=== PATIENT | female | born 1960 | race Caucasian/White ===

== ENCOUNTER → 2023-06-16 | Outpatient (CLI) | payer OTHER, MEDICAID | LOC: LAB 09:57 | PROVIDERS: Family Medicine | DX: I10 Essential (primary) hypertension (principal); E78.2 Mixed hyperlipidemia; E03.4 Atrophy of thyroid (acquired) ==

== ENCOUNTER → 2023-09-15 | Outpatient (CLI) | payer OTHER, MEDICAID | LOC: MAMMO 13:38 → LAB 13:38 | DX: Z12.31 Encounter for screening mammogram for malignant neoplasm of breast (principal); E11.9 Type 2 diabetes mellitus without complications ==

== ENCOUNTER 2023-10-06 21:53 | Emergency (ER) | payer OTHER, MEDICAID ==
[2023-10-06 22:15] LABS: BASO # 0.07 K/mm3 (0.02-0.10); EOS # 0.17 K/mm3 (0.04-0.40); EOS % 1.4 % (1.0-5.0); HEMATOCRIT 44.5 % (37.0-47.0); HEMOGLOBIN 14.6 g/dL (12.5-16.0); MEAN CELL VOLUME 91 fl (78-100); MEAN CORPUSCULAR HEMOGLOBIN 30 pg (27-31); MEAN CORPUSCULAR HGB CONC 33 g/dL (33-37); MEAN PLATELET VOLUME 10.5 fl (7.4-10.4); MONO # 0.82 K/mm3 (0.20-0.80); PLATELET COUNT 254 K/mm3 (130-400); RED BLOOD COUNT 4.88 M/mm3 (4.10-5.30); RED CELL DISTRIBUTION WIDTH 12.3 % (11.5-14.5); WHITE BLOOD COUNT 12.2 K/mm3 (4.8-10.8)
[2023-10-06] MEDS ORDERED: BIKTARVY 50-201 EACH PO (22:17)
[2023-10-06] MEDS ORDERED: CETIRIZINE HCL10 MG PO (22:17)
[2023-10-06] MEDS ORDERED: ATORVASTATIN CA20 MG PO (22:17)
[2023-10-06] MEDS ORDERED: DULOXETINE60 MG PO (22:17)
[2023-10-06] MEDS ORDERED: MELOXICAM15 MG PO (22:18)
[2023-10-06] MEDS ORDERED: GLUCOPHAGE PO (22:18)
[2023-10-06] MEDS ORDERED: LEVOTHYROXIN0.075 MG PO (22:18)
[2023-10-06] MEDS ORDERED: PRILOSEC 20MG20 MG PO (22:18)
[2023-10-06] MEDS ORDERED: LOSARTAN POTAS100 MG PO (22:19)
[2023-10-06 22:24] LABS: ALBUMIN 4.3 g/dL (3.4-4.8)
[2023-10-06 22:27] LABS: TOTAL PROTEIN 7.5 g/dL (6.2-8.1)
[2023-10-06 22:29] LABS: TOTAL BILIRUBIN 0.5 mg/dL (0.2-1.2)
[2023-10-06] MEDS ORDERED: Mag/Al Hydrox/Simeth Susp 30 ML CUP PO ONE (22:45)
[2023-10-06 22:46] LABS: TROPONIN-I 0.165 ng/mL (0.00-0.033)
[2023-10-06] MEDS ORDERED: Metoprolol Tartrate 1 MG/ML 5 ML VIAL IV ONE ×3 (23:00→23:45)
[2023-10-06] MEDS ORDERED: Ondansetron 4 MG/2 ML VIAL IV ONE (23:00)
[2023-10-06] MEDS ORDERED: Morphine 4 MG/ML VIAL IV ONE (23:00)
[2023-10-06 23:02] LABS: LIPASE 56 U/L (8-78)
[2023-10-06] MEDS ORDERED: Heparin 5,000 UNITS/ML 1 ML VIAL IV PRN (23:15)
[2023-10-06] MEDS ORDERED: Heparin 5,000 UNITS/ML 1 ML VIAL IV ONE (23:15)
[2023-10-06 23:21] LABS: PARTIAL THROMBOPLASTIN TIME 23.2 SECONDS (21.0-32.0)
[2023-10-06 23:42] LABS: PROTHROMBIN TIME 10.2 SECONDS (9.0-12.0)
[2023-10-07 00:10] LABS: URINE APPEARANCE SLIGHTLY CLOUDY (CLEAR); URINE COLOR YELLOW (YELLOW)
[2023-10-07 00:11] LABS: PH-URINE 5.5 (5.0 - 8.0); URINE BILIRUBIN NEGATIVE (NEGATIVE); URINE BLOOD NEGATIVE (NEGATIVE); URINE GLUCOSE NEGATIVE (NEGATIVE); URINE KETONE NEGATIVE (NEGATIVE); URINE LEUKOCYTE ESTERASE TRACE (NEGATIVE); URINE NITRATE NEGATIVE (NEGATIVE); URINE PROTEIN(semi-quant) NEGATIVE (NEGATIVE)
[2023-10-07 00:13] LABS: URINE MUCUS PRESENT (NOT PRESENT)
[2023-10-07 01:35] VITALS: BP 125/83
== END 2023-10-07 01:35 | disposition short-term general hospital (02) ==
LOC: ED 21:53
PROVIDERS: Nurse Practitioner
DX: I21.4 Non-ST elevation (NSTEMI) myocardial infarction (principal); I10 Essential (primary) hypertension; R00.0 Tachycardia, unspecified; Z87.891 Personal history of nicotine dependence; Z88.0 Allergy status to penicillin
CPT/HCPCS: J1644; J2270; J2405; J7120

== ENCOUNTER → 2023-12-17 | Outpatient (CLI) | payer OTHER, MEDICAID ==
[~2023-12-17] MED LIST: ATORVASTATIN CA20 MG PO; BIKTARVY 50-201 EACH PO; CETIRIZINE HCL10 MG PO; DULOXETINE60 MG PO; GLUCOPHAGE PO; LEVOTHYROXIN0.075 MG PO; LOSARTAN POTAS100 MG PO; MELOXICAM15 MG PO; PRILOSEC 20MG20 MG PO
[2023-12-17 13:53] LABS: CALCIUM 9.7 mg/dL (8.3-10.5)
== END ==
LOC: LAB 13:28
PROVIDERS: Family Medicine
DX: E11.9 Type 2 diabetes mellitus without complications (principal); E03.4 Atrophy of thyroid (acquired)

== ENCOUNTER → 2024-03-27 | Outpatient (CLI) | payer MEDICARE, OTHER ==
[2024-03-27 14:15] LABS: CALCIUM 10.3 mg/dL (8.3-10.5)
== END ==
LOC: LAB 13:57
PROVIDERS: Family Medicine
DX: I10 Essential (primary) hypertension (principal); E11.9 Type 2 diabetes mellitus without complications